=== PATIENT | male | born 1980 | race Caucasian/White ===

== ENCOUNTER 2020-02-17 18:03 | Emergency (ER) | payer OTHER ==
[~2020-02-17] VITALS: Ht 182.9 cm; Wt 99.8 kg
[2020-02-17] MEDS ORDERED: APAP W/CODEINE1 TA2 PO (19:16)
[2020-02-17 19:37] VITALS: BP 112/75
== END 2020-02-17 19:38 | disposition home or self-care (01) ==
LOC: M.ERS 18:03
DX: S62.396A Other fracture of fifth metacarpal bone, right hand, initial encounter for closed fracture (principal); Z98.890 Other specified postprocedural states; W22.8XXA Striking against or struck by other objects, initial encounter; Y93.89 Activity, other specified; Y92.89 Other specified places as the place of occurrence of the external cause; Y99.8 Other external cause status